=== PATIENT | male | born 1970 | race Two or more races ===

== ENCOUNTER 2023-05-16 00:57 | Emergency (ER) | payer MEDICAID, OTHER ==
[~2023-05-16] VITALS: Ht 177.8 cm; Wt 72.7 kg
[2023-05-16 01:14] VITALS: BP 109/75; PULSE 75; RESP 18; TEMP 98.1
[2023-05-16] MEDS ORDERED: PRED20TA2 PO (03:11)
[2023-05-16] MEDS ORDERED: DIPH25CA66 PO (03:11)
[2023-05-16] MEDS ORDERED: DexAMETHasone SOD PHOS 10MG/1ML VIAL INJ IM ONE (03:15)
[2023-05-16] MEDS ORDERED: diphenhdrAMINE HCL 50 MG/1 ML VL IM ONE (03:15)
[2023-05-16 03:27] VITALS: O2SAT 100
== END 2023-05-16 03:47 | disposition home or self-care (01) ==
LOC: ER 00:57
DX: S40.862A Insect bite (nonvenomous) of left upper arm, initial encounter (principal); S10.96XA Insect bite of unspecified part of neck, initial encounter; F17.210 Nicotine dependence, cigarettes, uncomplicated; W57.XXXA Bitten or stung by nonvenomous insect and other nonvenomous arthropods, initial encounter; Y93.89 Activity, other specified; Y92.89 Other specified places as the place of occurrence of the external cause; Y99.8 Other external cause status